=== PATIENT | male | born 1965 | race Two or more races ===

== ENCOUNTER 2019-11-22 05:30 | Day surgery (SDC) | payer OTHER ==
[~2019-11-22 05:30] MED LIST: COZAAR25 MG PO
[2019-11-22] MEDS ORDERED: PERCOCET 5-3251 EACH PO (09:12)
== END 2019-11-22 14:35 | disposition home or self-care (01) ==
LOC: CIR.AMB 05:30
PROVIDERS: ATTEND Surgery
DX: C20 Malignant neoplasm of rectum (principal); Z20.828 Contact with and (suspected) exposure to other viral communicable diseases

== ENCOUNTER 2020-04-08 07:55 | Day surgery (SDC) | payer OTHER ==
[~2020-04-08 07:55] MED LIST changes: +PERCOCET 5-3251 EACH PO
== END 2020-04-08 12:10 | disposition home or self-care (01) ==
LOC: AMB-ENDOS 07:55
PROVIDERS: ATTEND Surgery
DX: K62.89 Other specified diseases of anus and rectum (principal); Z20.822 Contact with and (suspected) exposure to COVID-19

== ENCOUNTER 2020-04-26 08:22 | Outpatient (CLI) | payer OTHER | END 2020-04-26 08:28 | disposition home or self-care (01) | LOC: RAD 08:22 | PROVIDERS: ATTEND Surgery | DX: D37.5 Neoplasm of uncertain behavior of rectum (principal); D12.8 Benign neoplasm of rectum; R19.5 Other fecal abnormalities; C20 Malignant neoplasm of rectum; R07.89 Other chest pain ==

== ENCOUNTER 2020-04-29 09:45 | Inpatient (IN) | payer OTHER ==
[~2020-04-29] VITALS: Ht 157.5 cm; Wt 70.3 kg
[2020-04-29] MEDS ORDERED: PEPCID AC10 MG PO (10:41)
[2020-04-29] MEDS ORDERED: ULTRACET PO (10:42)
[2020-05-04] MEDS ORDERED: HYOSCYAMINE0.125 M1 SL (12:34)
[2020-05-04] MEDS ORDERED: OXYC1TAB9 PO (12:35)
[2020-05-04] MEDS ORDERED: TAMS0.4C PO (12:35)
== END 2020-05-04 16:05 | disposition home or self-care (01) | DRG 331 ==
LOC: O/R 05-01 07:41 → SURG 05-01 07:41 → SURH 05-01 09:45 → SURG 05-01 15:38 → SURH 05-01 16:15 → SURG 05-04 16:05
PROVIDERS: ADMIT Surgery; ATTEND Surgery
PROC: 0DTP4ZZ Resection of Rectum, Percutaneous Endoscopic Approach (ICD-10-PCS; 2020-05-01)
PROC: 0DTQ4ZZ Resection of Anus, Percutaneous Endoscopic Approach (ICD-10-PCS; 2020-05-01)
PROC: 07BC4ZZ Excision of Pelvis Lymphatic, Percutaneous Endoscopic Approach (ICD-10-PCS; 2020-05-01)
PROC: 0D1M4Z4 Bypass Descending Colon to Cutaneous, Percutaneous Endoscopic Approach (ICD-10-PCS; 2020-05-01)
PROC: 0DTN4ZZ Resection of Sigmoid Colon, Percutaneous Endoscopic Approach (ICD-10-PCS; principal; 2020-05-01 16:15)
DX: C20 Malignant neoplasm of rectum (principal); R19.5 Other fecal abnormalities; I10 Essential (primary) hypertension